=== PATIENT | female | born 1965 | race Caucasian/White ===

== ENCOUNTER → 2016-10-16 | Outpatient (CLI) | payer OTHER ==
[~2016-10-16] VITALS: Ht 162.6 cm; Wt 113.4 kg
[~2016-10-16] MED LIST: CELEBREX200 MG PO; FLONASE ALLERG9.9 ML BOTH NARES; PROAIR HFA8.5 GM IH
== END | disposition home or self-care (01) ==
LOC: AMB 12:22
PROC: 0DJD8ZZ Inspection of Lower Intestinal Tract, Via Natural or Artificial Opening Endoscopic (ICD-10-PCS; principal; 2016-10-16)
DX: Z12.11 Encounter for screening for malignant neoplasm of colon (principal); Z80.0 Family history of malignant neoplasm of digestive organs; J45.909 Unspecified asthma, uncomplicated; Z88.8 Allergy status to other drugs, medicaments and biological substances
CPT/HCPCS: J2250; J3010

== ENCOUNTER 2018-02-17 15:54 | Emergency (ER) | payer OTHER ==
[~2018-02-17] VITALS: Ht 165.1 cm; Wt 117.7 kg
[2018-02-17 15:57] VITALS: BP 134/87
[2018-02-17] MEDS ORDERED: MOTRIN600 MG PO (17:39)
== END 2018-02-17 17:47 | disposition home or self-care (01) ==
LOC: EME 15:54
DX: S93.601A Unspecified sprain of right foot, initial encounter (principal); X50.1XXA Overexertion from prolonged static or awkward postures, initial encounter
CPT/HCPCS: 73630; 99281; 99284